=== PATIENT | male | born 1945 | race Hispanic/Latino ===

== ENCOUNTER 2018-09-28 03:58 | Emergency (ER) | payer MEDICARE, OTHER ==
[2018-09-28] MEDS ORDERED: Sodium Chloride 0.9% 1,000 ML IV STA (05:02)
--- NOTE | 2018-09-28 05:16 | ED PDOC ---
HPI: Abdomen Time Seen by Provider: 09/28/18 04:15 Chief Complaint (Nursing): Abdominal Pain Chief Complaint (Provider): Abdominal Pain History Per: Patient History/Exam Limitations: no limitations Onset/Duration Of Symptoms: Days (x1) Additional Complaint(s): 73 y/o male with no significant PMHx presents to the ED complaining of nausea and vomiting, onset yesterday evening. Patient states that x2 nights ago on he ate chicken asada frozen meal from [employer] and felt fine that n ight. HOwever, the next time approximately 24 hours later he developed nausea with several episodes of non-bloody vomiting. He denies any diarrhea but does report feeling bloated. He believes he may have food poisoning. Past Medical History Reviewed: Historical Data, Nursing Documentation, Vital Signs Vital Signs: Last Vital Signs Temp 97.9 F 09/28/18 04:33 Pulse 78 09/28/18 04:02 Resp 16 09/28/18 04:02 BP 161/93 H 09/28/18 04:02 Pulse Ox 98 09/28/18 04:02 - Medical History PMH: No Chronic Diseases - Surgical History Surgical History: No Surg Hx - Family History Family History: States: Unknown Family Hx - Social History Current smoker - smoking cessation education provided: No Alcohol: None - Home Medications Home Medications: Ambulatory Orders Medication Instructions Recorded Ondansetron [Zofran] 4 mg PO Q8H #9 tab 09/28/18 - Allergies Allergies/Adverse Reactions: Allergies Allergy/AdvReac Type Severity Reaction Status Date / Time No Known Allergies Allergy Verified 09/28/18 04:07 Review of Systems ROS Statement: Except As Marked, All Systems Reviewed And Found Negative Gastrointestinal: Positive for: Nausea, Vomiting. Negative for: Diarrhea, Hematochezia Physical Exam - Reviewed Nursing Documentation Reviewed: Yes Vital Signs Reviewed: Yes - Physical Exam Appears: Positive for: Well, Non-toxic, No Acute Distress Head Exam: Positive for: ATRAUMATIC, NORMAL INSPECTION, NORMOCEPHALIC Skin: Positive for: Normal Color, Warm, DRY Eye Exam: Positive for: EOMI, Normal appearance, PERRL ENT: Positive for: Normal ENT Inspection Neck: Positive for: Normal, Painless ROM, Supple Cardiovascular/Chest: Positive for: Regular Rate, Rhythm. Negative for: Murmur Respiratory: Positive for: Normal Breath Sounds. Negative for: Respiratory Distress Gastrointestinal/Abdominal: Positive for: Normal Exam, Soft. Negative for: Tenderness Back: Positive for: Normal Inspection Extremity: Positive for: Normal ROM. Negative for: Pedal Edema, Deformity Neurologic/Psych: Positive for: Alert, Oriented. Negative for: Motor/Sensory Deficits - Laboratory Results Result Diagrams: 09/28/18 05:15 09/28/18 05:15 - ECG O2 Sat by Pulse Oximetry: 98 (RA) Pulse Ox Interpretation: Normal Medical Decision Making Medical Decision Making: Time: 05:02 Initial Impression: vomiting Differential diagnosis is acute pancreatitis, gastritis, GERD, food poisoning and less likely small bowel obstruction Initial Plan: CMP Lipase CBC w/ diff IV Fluids Pepcid 20 mg Zofran 4 mg 07:00 Patient care endorsed to Dr. Phillips pending CT Abdomen Pelvis. Scribe Attestation: Documented by Petey Mireles acting as a scribe for Jarrod Garcia MD Provider Scribe Attestation: All medical record entries made by the Scribe were at my direction and personally dictated by me. I have reviewed the chart and agree that the record accurately reflects my personal performance of the history, physical exam, medical decision making, and the department course for this patient. I have also personally directed, reviewed, and agree with the discharge instructions and disposition. Disposition - Clinical Impression Clinical Impression: Enteritis - Patient ED Disposition Is Patient to be Admitted: Transfer of Care Counseled Patient/Family Regarding: Studies Performed, Diagnosis - Disposition Disposition: Transfer of Care Disposition Time: 07:00 Condition: IMPROVED Additional Instructions: Follow up with your personal physician. Return to the ER if your symptoms recur Prescriptions: Ondansetron [Zofran] 4 mg PO Q8H #9 tab Instructions: Intestinal Pseudo-obstruction (DC) Patient Signed Over To: Edith Phillips
[2018-09-28 05:24] LABS: BASO % 0.2 % (0.0-2.0); HEMOGLOBIN 17.2 g/dL (12.0-18.0); LYMPH # 0.8 K/uL (1.0-4.3); LYMPH % 5.2 % (20.0-40.0); MEAN CORPUSCULAR HEMOGLOBIN 31.1 pg (27.0-31.0); MEAN CORPUSCULAR HGB CONC 34.1 g/dL (33.0-37.0); MEAN PLATELET VOLUME 10.9 fl (7.2-11.7); MONO # 0.8 K/uL (0.0-0.8); MONO % 4.9 % (0.0-10.0); NEUT # 13.9 K/uL (1.8-7.0); NEUT % 89.7 % (50.0-75.0); NRBC % 0.3 % (0.0-0.0); PLATELET COUNT 164 K/uL (130-400); RBC 5.53 Mil/uL (4.40-5.90); RED CELL DISTRIBUTION WIDTH 13.9 % (11.5-14.5); WHITE BLOOD COUNT 15.4 K/uL (4.8-10.8)
[2018-09-28 05:33] LABS: ALB/GLOB RATIO 1.4 (1.0-2.1); ALBUMIN 4.7 g/dL (3.5-5.0); ALT/SGPT 49 U/L (21-72); AST/SGOT 36 U/L (17-59); BLOOD UREA NITROGEN 27 mg/dl (9-20); CALCIUM 10.1 mg/dL (8.4-10.2); GFR NON-AFRICAN AMERICAN > 60; LIPASE 82 U/L (23-300)
[2018-09-28] MEDS ORDERED: Alum-Mag Hydrox-Simethicone Susp (30 mL) PO ONE (06:28)
[2018-09-28] MEDS ORDERED: Alum-Mag Hydrox-Simethicone Susp (30 mL) ONE (06:30)
[2018-09-28 07:13] LABS: ANISOCYTOSIS SLIGHT; LYMPHOCYTE 7 % (20-50); MONOCYTE 3 % (0-10); NEUTROPHIL 90 % (42-75); PLATELET ESTIMATE NORMAL (NORMAL); TOTAL CELLS COUNTED 100
[2018-09-28 07:14] LABS: GIANT PLATELETS PRESENT; LARGE PLATELETS PRESENT
--- NOTE | 2018-09-28 07:45 | ED PDOC ---
- Laboratory Results Result Diagrams: 09/28/18 05:15 09/28/18 05:15 Lab Results: Total Bilirubin 1.7 mg/dl (0.2-1.3) H 09/28/18 05:15 AST 36 U/L (17-59) 09/28/18 05:15 ALT 49 U/L (21-72) 09/28/18 05:15 Alkaline Phosphatase 57 U/L (38-126) 09/28/18 05:15 Total Protein 8.1 G/DL (6.3-8.2) 09/28/18 05:15 Albumin 4.7 g/dL (3.5-5.0) 09/28/18 05:15 Globulin 3.4 gm/dL (2.2-3.9) 09/28/18 05:15 Albumin/Globulin Ratio 1.4 (1.0-2.1) 09/28/18 05:15 Lipase 82 U/L (23-300) 09/28/18 05:15 - ECG O2 Sat by Pulse Oximetry: 98 (RA) Pulse Ox Interpretation: Normal Medical Decision Making Medical Decision Making: Time: 7:00 Patient was endorsed to me by Dr. Garcia pending CT. Scribe Attestation: Documented by Haily James, acting as a scribe for Edith Phillips MD. Provider Scribe Attestation: All medical record entries made by the Scribe were at my direction and personally dictated by me. I have reviewed the chart and agree that the record accurately reflects my personal performance of the history, physical exam, medical decision making, and the department course for this patient. I have also personally directed, reviewed, and agree with the discharge instructions and disposition. patient is feeling better. just feeling mouth being dried. He is urinating adequately. there is no abdominal pain and it is not tender on exam. CT scan reviewed with patient who apparently had a frozen meal from a local supermarket. Disposition Doctor Will See Patient In The: Office Counseled Patient/Family Regarding: Diagnosis, Need For Followup, Rx Given - Clinical Impression Clinical Impression: Enteritis - POA Present On Arrival: None - Disposition Disposition: Routine/Home Disposition Time: 10:00 Condition: IMPROVED Additional Instructions: Follow up with your personal physician. Return to the ER if your symptoms recur Prescriptions: Ondansetron [Zofran] 4 mg PO Q8H #9 tab Instructions: Intestinal Pseudo-obstruction (DC) Forms: [employer] ([place]ian)
[2018-09-28] MEDS ORDERED: Sodium Chloride 0.9% 50 ML IV ONE (08:42)
[2018-09-28] MEDS ORDERED: Iohexol 300 100 ML IJ ONE (08:42)
--- NOTE | 2018-09-28 09:45 | CT ---
Date of service: 09/28/2018 PROCEDURE: CT Abdomen and Pelvis HISTORY: Intractable vomiting COMPARISON: No prior TECHNIQUE: Contiguous helical/transaxial sections of the abdomen pelvis performed following intravenous injection of approximately 95 cc Omnipaque 300 contrast material. Additional 2D sagittal and coronal reformats generated. Radiation dose: Total exam DLP = 876.84 mGy-cm. This CT exam was performed using one or more of the following dose reduction techniques: Automated exposure control, adjustment of the mA and/or kV according to patient size, and/or use of iterative reconstruction technique. FINDINGS: LOWER THORAX: Heart size within range of normal. No significant pericardial effusion. There is a small hiatal hernia. There appears to be a incompletely visualized plaque-like focus of pleural thickening left posterior sulcus of the lung.. LIVER: Liver is enlarged measuring nearly 20 cm in CC dimension. Mild fatty hepatic infiltration. No obvious hepatic mass collection or calcification. Portal and splenic veins are opacified. GALLBLADDER AND BILE DUCTS: Gallbladder physiologically distended. No evidence of intraluminal gallbladder calculi. PANCREAS: Pancreas appears slightly atrophic and fatty replaced. No pancreatic mass collection or calcification. SPLEEN: Unremarkable. ADRENALS: Nodular enlargement left adrenal gland with questionable probable underlying nodule which measures approximately 19 mm. There is a small right adrenal nodule measuring approximately 17 mm. KIDNEYS AND URETERS: Bilateral nonobstructing renal calculi. Largest right-sided calcifications seen in the mid pole collecting system right kidney measuring approximately 8 mm. Largest calculi left kidney are located in the upper pole 1st measuring approximately 8.5 mm and the 2nd more anteriorly located measuring approximately 7 mm. At least 3 additional tiny calculi lower pole collecting system right kidney. Large exophytic cyst arising from the lower pole right kidney measures approximately 5.4 x 4.7 cm. VASCULATURE: Unremarkable. No aortic aneurysm. Mild aortic atherosclerotic calcification or mural plaque present. BOWEL: Evaluation of the bowel is limited due to the lack of oral contrast material. Stomach is incompletely distended. There are several distended fluid-filled loops of small bowel left upper abdomen with slight wall thickening. Multiple nondistended fluid-filled loops of small bowel are also seen. Findings consistent with mild ileus possibly related to enteritis. Stool is present within the cecum and at ascending as well as to a lesser degree transverse colon few scattered colonic diverticula seen along the descending colon. No radiographic evidence to suggest acute diverticulitis. APPENDIX: Normal appendix. PERITONEUM: Unremarkable. No free fluid. No free air. Small fat containing umbilical hernia. There is a small fat containing left inguinal hernia. LYMPH NODES: Unremarkable. No enlarged lymph nodes. BLADDER: Urinary bladder wall is slightly thickened in part due to incomplete distention however muscular hypertrophy may contribute. Correlation with urinalysis to exclude other intrinsic/invasive wall lesion which would be difficult to see distinguish from encroaching prostate gland along the bladder floor. REPRODUCTIVE: Small left-sided hydrocele. Prostate gland is enlarged and lobulated protrude into the floor of the urinary bladder. Prostate gland measures approximately 6.6 cm in transverse dimension. Questionable TUR versus dilatation of the prostatic segment of the urethra the.. Prostatic calcifications are present. BONES: Multilevel degenerative spondylosis of the lower thoracic and lumbar spine. There are no acute compression fractures no retropulsed fragments however minor chronic anterior wedge deformities of a few lower thoracic segments noted OTHER FINDINGS: None. IMPRESSION: Findings suggest mild enteritis with secondary ileus. Hepatomegaly with mild fatty hepatic infiltration. Nonobstructing bilateral renal calculi. Enlarged lobulated heterogeneous prostate gland which encroaches into the floor of the urinary bladder. Findings likely due to BPH however correlation with PSA recommended. Questionable TUR versus dilatation of the prostatic segment of the urethra. Minimal bladder wall thickening also present likely due to incomplete distention and muscular hypertrophy however possibility of other intrinsic/invasive wall lesion not excluded Bilateral adrenal nodules. Left-sided hydrocele.
[2018-09-28 10:15] VITALS: BP 138/77; PULSE 70; RESP 16; TEMP 98
[2018-09-28 10:16] VITALS: O2SAT 98
== END 2018-09-28 10:15 | disposition home or self-care (01) ==
LOC: H.ER 03:58
DX: K52.9 Noninfective gastroenteritis and colitis, unspecified (principal)
CPT/HCPCS: 74177; 80053; 83690; 85025; 96374; 96375; 96376; 99284; J2405; J7030; Q9967